=== PATIENT | female | born 1990 | race Two or more races ===

== ENCOUNTER 2017-02-28 00:28 | Emergency (ER) | payer OTHER ==
[~2017-02-28] VITALS: Ht 162.6 cm; Wt 61.2 kg
--- NOTE | 2017-02-28 00:40 | NUR ---
TO BED 7 A 27 YO FEMALE PATIENT BIB FRIEND C/O UNWITNESSED SYNCOPAL EPISODE X 2 EPIDOSE 10 MIN APART +KO; - TRAUMA. PATIENT IS ALSO C/O RIGHT FRYE PAIN. ADMITS TO SMOKING [place]. NAD NOTED. VSS. NONDIPHORETIC. AMBULATORY. GOWNED. COMFORT AND SAFETY MEASURES RENDERED. PLACED ON MONITOR. FRIEND AT BEDSIDE. AWAITING FOR ER MD GONZALEZ.
--- NOTE | 2017-02-28 01:26 | NUR ---
DR CORREA AT BEDSIDE TO EVALUATE PATIENT.
[2017-02-28] MEDS ORDERED: IV NS 0.9% 1,000 ML BAG IV ONE (02:00)
--- NOTE | 2017-02-28 02:32 | NUR ---
IV removed. Catheter intact and site benign. Pressure and 4x4 applied to site. No bleeding noted. Patient discharged to home in stable condition. Written and verbal after care instructions given. Patient verbalizes understanding of instruction. Patient is ambulatory with steady gait, accompanied by friend. No further complaints.
[2017-02-28 02:33] VITALS: BP 105/62
== END 2017-02-28 02:33 | disposition home or self-care (01) ==
LOC: ER 00:33
DX: R55 Syncope and collapse (principal); F41.9 Anxiety disorder, unspecified; F12.90 Cannabis use, unspecified, uncomplicated
CPT/HCPCS: 82962; 93005; 96360; 99284; A4606; J7030; Z7610